=== PATIENT | female | born 1985 | race Caucasian/White ===

== ENCOUNTER 2025-03-08 13:38 | Emergency (ER) | payer MEDICAID ==
[~2025-03-08] VITALS: Ht 167.6 cm; Wt 127.0 kg
[2025-03-08] MEDS ORDERED: diphenhydrAMINE HCL 50 MG CAPSULE ONE (14:02)
[2025-03-08] MEDS ORDERED: predniSONE 20 MG TABLET ONE (14:02)
[2025-03-08] MEDS ORDERED: FAMOTIDINE (20 MG) 20 MG TABLET ONE (14:03)
[2025-03-08] MEDS: predniSONE 50 MG TABLET PO ONE (14:06)
[2025-03-08] MEDS: diphenhydrAMINE HCL 25 MG CAPSULE PO ONE (14:06)
[2025-03-08] MEDS: FAMOTIDINE (20 MG) 20 MG TABLET PO ONE (14:06)
[2025-03-08] MEDS ORDERED: PRED20TA PO (15:41)
[2025-03-08] MEDS ORDERED: CETI-90 PO (15:41)
[2025-03-08] MEDS ORDERED: EPIN0.3P3 IM (15:44)
[2025-03-08] MEDS: EPINEPHRINE (1:1000) 1 MG/ML AMPUL SUBCUT ONE (16:30)
[2025-03-08] MEDS ORDERED: EPINEPHRINE (1:1000) 1 MG/ML AMPUL ONE (16:41)
[2025-03-08] MEDS: MAG HYDROX/AL HYDROX/SIMETH 30 ML UDC PO ONE (18:00)
[2025-03-08] MEDS ORDERED: MAG HYDROX/AL HYDROX/SIMETH 30 ML UDC ONE (18:46)
[2025-03-08 19:16] VITALS: BP 131/81; TEMP 97.9; O2SAT 99
== END 2025-03-08 19:16 | disposition home or self-care (01) ==
LOC: EDBD 14:01 → ER 14:01
DX: L27.0 Generalized skin eruption due to drugs and medicaments taken internally (principal); T39.015A Adverse effect of aspirin, initial encounter; Z79.52 Long term (current) use of systemic steroids; Y92.89 Other specified places as the place of occurrence of the external cause
CPT/HCPCS: 99284; 96372; Q0163; J0171; J7512

== ENCOUNTER 2025-03-22 12:19 | Emergency (ER) | payer MEDICAID ==
[~2025-03-22] VITALS: Ht 167.6 cm; Wt 127.0 kg
[~2025-03-22 12:19] MED LIST: CETI-90 PO; EPIN0.3P3 IM; PRED20TA PO
[2025-03-22 12:42] VITALS: TEMP 100
[2025-03-22 12:46] VITALS: BP 130/86; O2SAT 100
[2025-03-22] MEDS ORDERED: KETOROLAC TROMETHAMINE INJ 30 MG/ML VIAL ONE (13:04)
[2025-03-22] MEDS ORDERED: ONDANSETRON HCL/PF 4 MG/2 ML VIAL ONE (13:04)
[2025-03-22] MEDS ORDERED: FAMOTIDINE/PF INJ 20 MG/2 ML VIAL IV ONE (13:04)
[2025-03-22 13:07] LABS: APPEARANCE,URINE CLEAR (CLEAR); BILIRUBIN,URINE Negative (NEGATIVE); BLOOD, URINE Negative Ery/uL (NEGATIVE); COLOR,URINE YELLOW (YELLOW); KETONES,URINE Negative (NEGATIVE); LEUKOCYTE ESTERASE ,URINE Negative (NEGATIVE); PH,URINE 6.5 (5.0-8.0); PROTEIN,URINE Trace mg/dl (NEGATIVE); UGLUCOSE Negative (NEGATIVE); UROBILINOGEN,URINE 0.2 EU/dL (0.2)
[2025-03-22 13:08] LABS: NITRITE, URINE NEGATIVE (NEGATIVE); PREGNANCY TEST URINE QUAL NEGATIVE (NEGATIVE)
[2025-03-22] MEDS: IV NS 0.9% 1,000 ML BAG IV ONE (13:08)
[2025-03-22] MEDS: FAMOTIDINE/PF INJ 20 MG/2 ML VIAL IV ONE (13:10)
[2025-03-22 13:11] LABS: RBC,URINE 0-2 /HPF (0-2)
[2025-03-22 13:12] LABS: ADD URINE CULTURE NO; BACTERIA,URINE Rare /HPF (None Seen); MUCUS,URINE Few /LPF (None Seen); SQUAMOUS EPITHELIAL CELL,UR Many /HPF (None Seen); WBC,URINE 0-2 /HPF (0-3)
[2025-03-22] MEDS: ONDANSETRON HCL/PF 4 MG/2 ML VIAL IVP ONE (13:12)
[2025-03-22] MEDS: KETOROLAC TROMETHAMINE 15 MG/ML VIAL IV ONE (13:15)
[2025-03-22 13:19] LABS: BASOPHILS % (AUTO) 0.2 % (0.0-2.0); EOSINOPHILS # (AUTO) 0.1 K/uL (0.0-0.7); EOSINOPHILS % (AUTO) 0.4 % (0.0-6.0); HEMATOCRIT 39 % (33-45); HEMOGLOBIN 12.9 g/dL (11.5-14.8); LYMPHOCYTES # (AUTO) 1.3 K/uL (0.8-4.8); MEAN CORPUSCULAR HEMOGLOBIN 28 PG (26.0-33.0); MEAN CORPUSCULAR HGB CONC 33 g/dl (31.0-36.0); MEAN CORPUSCULAR VOLUME 85 fL (82-100); MONOCYTES # (AUTO) 1.2 K/uL (0.1-1.30); MONOCYTES % (AUTO) 8.4 % (2.0-12.0); NEUTROPHILS # (AUTO) 11.5 K/uL (1.8-8.9); PLATELET COUNT (AUTO) 237 K/uL (150-450); RED BLOOD CELL COUNT(AUTO) 4.64 MIL/uL (4.0-5.2); RED CELL DISTRIBUTION WIDTH 14.1 % (11.5-15.0)
[2025-03-22 13:27] LABS: CALCIUM, SERUM 8.6 mg/dL (8.5-10.1); CREATININE 0.8 mg/dL (0.6-1.3); POTASSIUM 3.9 mmol/L (3.5-5.1)
[2025-03-22 13:33] LABS: ALBUMIN 3.3 g/dL (3.4-5.0); BILIRUBIN,DIRECT 0.4 mg/dL (0.0-0.2); BILIRUBIN,TOTAL 1.4 mg/dL (0.2-1.0); TOTAL PROTEIN, SERUM 7.5 g/dL (6.4-8.2)
[2025-03-22] MEDS ORDERED: ONDA4TAB5 PO ×2 (14:08→14:48)
[2025-03-22] MEDS ORDERED: AMOX-430 PO ×2 (14:20→14:48)
[2025-03-22] MEDS ORDERED: AMOX/CLAVULANATE 875 MG TABLET ONE (14:28)
[2025-03-22] MEDS: AMOX/CLAVULANATE 875 MG TABLET PO ONE (14:29)
== END 2025-03-22 15:02 | disposition home or self-care (01) ==
LOC: EDBD 12:21 → ER 12:21
DX: R10.84 Generalized abdominal pain (principal); R10.2 Pelvic and perineal pain; R50.9 Fever, unspecified; R11.0 Nausea; F17.200 Nicotine dependence, unspecified, uncomplicated; Z79.52 Long term (current) use of systemic steroids
CPT/HCPCS: 99285; 74176; 96374; 96375; 96361; 85025; 80048; 87086; 83690; 80076; 84703; 81001; 36415; 84702; J1885; J1308; J2405; J7030